=== PATIENT | female | born 1950 | race Caucasian/White ===

== ENCOUNTER → 2019-06-28 | Outpatient (CLI) | payer MEDICARE, OTHER ==
[2019-06-28] VITALS (7 sets, daily range): BP systolic 137–224; BP diastolic 61–77
[~2019-06-28] MED LIST: DOBUTamine DRIP 250 ML IV ONE
== END ==
LOC: CARD 13:43
PROVIDERS: ATTEND Nurse Practitioner Family
DX: R07.9 Chest pain, unspecified (principal)
CPT/HCPCS: 93351

== ENCOUNTER 2022-06-25 12:03 | Emergency (ER) | payer MEDICARE, OTHER ==
[~2022-06-25] VITALS: Ht 160 cm; Wt 88.0 kg
--- NOTE | 2022-06-25 12:36 | ED General ---
General Stated Complaint: COUGH; SORE THROAT History of Present Illness Date Seen by Provider: Jun 25, 2022 Time Seen by Provider: 12:36 Initial Comments 71-year-old female is here with complaints of sinus pressure, sore throat, nasal congestion, and headache for the past 2 weeks. Patient was seen in urgent care and was given medications for allergy control. Patient is stating that it is not improving much and he is continue to have symptoms. Denies fever, chest pain, shortness of breath, palpitations, diarrhea, abdominal pain. No known sick contacts. Allergies and Home Medications Allergies Coded Allergies: meperidine (Verified Allergy, Unknown, 06/25/22) Patient Home Medication List Home Medication List Reviewed: Yes Review of Systems Review of Systems Constitutional: no symptoms reported EENTM: nose congestion, throat pain, other (Sinus pain) Respiratory: cough, phlegm Cardiovascular: no symptoms reported Gastrointestinal: no symptoms reported Genitourinary: no symptoms reported Musculoskeletal: no symptoms reported Skin: no symptoms reported Psychiatric/Neurological: No Symptoms Reported Hematologic/Lymphatic: No Symptoms Reported Immunological/Allergic: no symptoms reported Physical Exam Vital Signs Vital Signs - First Documented 06/25/22 13:54 Temp 35.9 Pulse 61 Resp 16 B/P (MAP) 154/60 (91) Pulse Ox 99 O2 Delivery Room Air Capillary Refill : Height, Weight, BMI Height: '" Weight: lbs. oz. kg; BMI Method: General Appearance: No Apparent Distress, WD/WN HEENT: PERRL/EOMI, Normal ENT Inspection, Pharynx Normal, Other (Maxillary and frontal tenderness bilaterally) Neck: Full Range of Motion, Normal Inspection, Non Tender Respiratory: Chest Non Tender, Lungs Clear, Normal Breath Sounds, No Accessory Muscle Use, No Respiratory Distress Cardiovascular: Regular Rate, Rhythm Gastrointestinal: Non Tender, Soft Neurologic/Psychiatric: Alert, Oriented x3 Skin: Normal Color Progress/Results/Core Measures Suspected Sepsis SIRS Temperature: Pulse: Respiratory Rate: Blood Pressure / Mean: Results/Orders Lab Results Laboratory Tests Test 06/25/22 12:35 06/25/22 12:41 Range/Units Influenza Type A (RT-PCR) Not Detected Not Detecte Influenza Type B (RT-PCR) Not Detected Not Detecte SARS-CoV-2 RNA (RT-PCR) Not Detected Not Detecte Group A Streptococcus Screen NEGATIVE NEGATIVE My Orders Orders - CHRISTA DIAZ MD Covid 19 Inhouse Test (06/25/22 12:09) Influenza A And B By Pcr (06/25/22 12:09) Rapid Strep A Screen (06/25/22 12:10) Vital Signs/I&O 06/25/22 13:54 Temp 35.9 Pulse 61 Resp 16 B/P (MAP) 154/60 (91) Pulse Ox 99 O2 Delivery Room Air Capillary Refill : Progress Note : Progress Note SINUSITIS: -We will start patient on azithromycin for 3 days daily since symptoms have been going on for over 7 days. -COVID test/flu test/rapid strep test are negative -Follow-up with PCP within the next 3 to 7 days -Continue allergy medications as prescribed by urgent care doctor -Nasal saline mist as needed -The patient was seen in the ED, and treated appropriately to presentation at a specific point in time. Patient is informed that there is a possibility that disease and illness can evolve and change in acuity rapidly or slowly after patient is discharged from the ER. Precautionary advice given to the patient for immediate return to ER if symptoms worsen or do not resolve, and to seek emergency care sooner rather than later. Pt also advised on the importance of PCP follow up and compliance with management and follow up plan with PCP and/or specialist, as this is part of the management plan. Pt verbally expressed understanding. Departure Impression Primary Impression: Acute sinusitis Qualified Codes: J01.11 - Acute recurrent frontal sinusitis Disposition: 01 HOME, SELF-CARE Condition: Stable Departure-Patient Inst. Referrals: FRANKY LAN APRN (PCP) Primary Care Physician [facility] (Family) Primary Care Physician Patient Instructions: Sinusitis in Adults, Sinus Headache (DC), Sinusitis, Adult ED Add. Discharge Instructions: azithromycin for 3 days daily -Follow-up with PCP within the next 3 to 7 days -Continue allergy medications as prescribed by urgent care doctor -Nasal saline mist as needed Scripts Azithromycin (Azithromycin) 500 Mg Tablet 500 MG PO DAILY for 3 Days, #3 TAB Prov: CHRISTA DIAZ MD 06/25/22 CHRISTA DIAZ MD Jun 25, 2022 12:36
[2022-06-25 13:54] VITALS: BP 154/60
[2022-06-25] MEDS ORDERED: AZIT500T9 PO (15:54)
== END 2022-06-25 15:55 | disposition home or self-care (01) ==
LOC: EDUNIT# 12:03 → ER FS 12:05
DX: J01.00 Acute maxillary sinusitis, unspecified (principal); J01.10 Acute frontal sinusitis, unspecified; Z20.822 Contact with and (suspected) exposure to COVID-19
CPT/HCPCS: 87430; 87636; 99283